=== PATIENT | female | born 1995 | race American Indian/Alaskan Native ===

== ENCOUNTER 2019-12-07 13:00 | Emergency (ER) | payer SELFPAY ==
--- NOTE | 2019-12-07 13:15 | Emergency Department Report ---
Chief Complaint: Urogenital-Female Stated Complaint: VAGINAL PAIN - HPI History of Present Illness: Ms. Bunn presents with possible vaginal herpes. I viewed imaged provided by patient. Given referral to outside clinic. MSE completed. MSE screening note: Focused history and physical exam performed. Due to findings the following was ordered: ED Disposition for MSE Clinical Impression: Encounter for medical screening examination Disposition: MED SCREENING EXAM-LEFT Condition: Stable Referrals: CHAYITO VALLE MD [Staff Physician] - 3-5 Days [facility] [Outside] - 3-5 Days
[2019-12-07 14:30] VITALS: BP 120/80
== END 2019-12-07 14:30 | disposition left against medical advice (07) ==
LOC: ED 13:00
DX: Z00.8 Encounter for other general examination (principal)
CPT/HCPCS: 99281